=== PATIENT | female | born 1945 | race Caucasian/White ===

== ENCOUNTER 2021-09-15 09:38 | Outpatient (CLI) | payer MEDICARE | END 2021-09-15 09:39 | disposition home or self-care (01) | LOC: NM 09:38 → EDBD 10:00 | PROVIDERS: ATTEND Family Medicine Sports Medicine | DX: T84.032A Mechanical loosening of internal right knee prosthetic joint, initial encounter (principal); M25.561 Pain in right knee | CPT/HCPCS: 78315; A9503 ==